=== PATIENT | male | born 1930 | race African-American/Black ===

== ENCOUNTER 2018-02-18 18:17 | Inpatient (IN) | payer MEDICARE, MEDICAID ==
[~2018-02-18] VITALS: Ht 170.2 cm; Wt 59.0 kg
[2018-02-18] MEDS ORDERED: AMLO5TAB88 PO (18:51)
[2018-02-18] MEDS ORDERED: MONT10TA24 PO (18:51)
[2018-02-18] MEDS ORDERED: TRAM150C25 PO (18:51)
[2018-02-18] MEDS ORDERED: FLUT1BLS3 IH (18:51)
[2018-02-18] MEDS ORDERED: SULF-288 PO (18:51)
[2018-02-18] MEDS ORDERED: IBUP-2029 PO (18:51)
[2018-02-18] MEDS ORDERED: CLONIDINE 0.2MG TABLET PO ONE (20:00)
[2018-02-18 20:40] LABS: BASOPHILS % 0.7 % (0.0-2.0); EOSINOPHILS % 0.3 % (0.0-5.0); HEMATOCRIT. 45.7 % (42.0-52.0); HEMOGLOBIN. 15.4 g/dL (14.0-18.0); LYMPHOCYTES % 34.9 % (20.0-50.0); MEAN CORPUSCULAR HEMOGLOBIN 31.4 pg (28.0-32.0); MEAN CORPUSCULAR VOLUME 93.1 fL (80.0-94.0); MEAN PLATELET VOLUME 9.2 fl (7.4-10.4); NEUTROPHILS % 53.1 % (40.0-76.0); PLATELET 196 x1000/uL (130-400); RED BLOOD CELL COUNT 4.91 mill/uL (4.7-6.1); RED CELL DISTRIBUTION WIDTH 13.6 % (11.6-14.6)
[2018-02-18 20:53] LABS: CHLORIDE 105 mEq/L (98-107)
[2018-02-18 20:57] LABS: ETHANOL BLOOD < 10 mg/dL
[2018-02-18 20:59] LABS: D-DIMER 4.06 mg/L FEU (<0.50); INR 1.2; PARTIAL THROMBOPLASTIN TIME 26.4 sec (23.4-31.0); PROTHROMBIN TIME 12.3 sec (9.1-11.1)
[2018-02-19] VITALS (10 sets, daily range): BP systolic 95–115; BP diastolic 49–72
[2018-02-19] MEDS ORDERED: DEXT 5%/0.45% NACL 1000ML 1,000 ML IV SCH (00:17)
[2018-02-19] MEDS ORDERED: ONDANSETRON HCL 4MG/2ML INJ IV PRN (00:30)
[2018-02-19] MEDS ORDERED: IPRATROPIUM/ALBUTEROL 0.5-3(2.5)MG/3ML NEB INH PRN (00:30)
[2018-02-19] MEDS ORDERED: ACETAMINOPHEN 325MG TABLET PO PRN (00:30)
[2018-02-19] MEDS ORDERED: TRAMADOL 50MG TABLET PO PRN (00:30)
[2018-02-19] MEDS ORDERED: GUAIFENESIN 200MG/10ML SUGAR FREE UDC PO PRN (00:30)
[2018-02-19] MEDS: DEXT 5%/0.45% NACL 1000ML 1,000 ML IV SCH (04:31)
[2018-02-19] MEDS ORDERED: CEFAZOLIN SODIUM 500MG/VIAL IM SCH (05:00)
[2018-02-19] MEDS: ENOXAPARIN 60MG/0.6ML SYR SUBCUT SCH (05:45)
[2018-02-19] MEDS ORDERED: FAMOTIDINE 20MG/2ML VIAL IV SCH (09:00)
[2018-02-19 09:35] LABS: BASOPHILS % 0.7 % (0.0-2.0); EOSINOPHILS % 0.6 % (0.0-5.0); HEMATOCRIT. 43.6 % (42.0-52.0); HEMOGLOBIN. 14.6 g/dL (14.0-18.0); LYMPHOCYTES % 37.2 % (20.0-50.0); MEAN CORPUSCULAR HEMOGLOBIN 31.1 pg (28.0-32.0); MEAN CORPUSCULAR VOLUME 92.9 fL (80.0-94.0); MEAN PLATELET VOLUME 9.2 fl (7.4-10.4); MONOCYTES % 8.9 % (2.0-8.0); NEUTROPHILS % 52.6 % (40.0-76.0); PLATELET 190 x1000/uL (130-400); RED BLOOD CELL COUNT 4.69 mill/uL (4.7-6.1); RED CELL DISTRIBUTION WIDTH 13.5 % (11.6-14.6)
[2018-02-19] MEDS: FAMOTIDINE 20MG/2ML VIAL IV SCH (09:36)
[2018-02-19] MEDS: IPRATROPIUM/ALBUTEROL 0.5-3(2.5)MG/3ML NEB INH SCH ×3 (12:30→21:31)
[2018-02-19] MEDS: BUDESONIDE 0.5MG/2ML NEB HHN SCH (12:34)
[2018-02-19] MEDS: METHYLPREDNISOLONE SOD SUCC 40 MG/ML VIAL IV SCH ×2 (13:54→21:31)
[2018-02-19] MEDS ORDERED: DIGOXIN 500MCG/2ML AMP IV NR (14:30)
[2018-02-19] MEDS ORDERED: LIDOCAINE HCL 2% JELLY 5ML TOP SCH (18:00)
[2018-02-19] MEDS: CEFAZOLIN 500 MG in DEXTROSE 5% WATER 50 ML IV SCH (21:31)
[2018-02-19] MEDS ORDERED: DIGOXIN 500MCG/2ML AMP IV SCH ×2 (22:45)
[2018-02-20] VITALS (12 sets, daily range): BP systolic 90–141; BP diastolic 43–95
[2018-02-20] MEDS: DEXT 5%/0.45% NACL 1000ML 1,000 ML IV SCH ×3 (00:29→18:50)
[2018-02-20] MEDS: IPRATROPIUM/ALBUTEROL 0.5-3(2.5)MG/3ML NEB INH SCH ×6 (01:39→20:26)
[2018-02-20] MEDS: DIPHENHYDRAMINE 50MG/ML VIAL IV PRN ×2 (01:58→07:47)
[2018-02-20] MEDS: METHYLPREDNISOLONE SOD SUCC 40 MG/ML VIAL IV SCH ×3 (05:43→22:41)
[2018-02-20] MEDS: ENOXAPARIN 60MG/0.6ML SYR SUBCUT SCH (05:43)
[2018-02-20 06:19] LABS: HEMATOCRIT. 40.3 % (42.0-52.0); HEMOGLOBIN. 13.8 g/dL (14.0-18.0); MEAN CORPUSCULAR HEMOGLOBIN 31.8 pg (28.0-32.0); MEAN CORPUSCULAR VOLUME 92.6 fL (80.0-94.0); MEAN PLATELET VOLUME 9.4 fl (7.4-10.4); PLATELET 196 x1000/uL (130-400); RED BLOOD CELL COUNT 4.35 mill/uL (4.7-6.1); RED CELL DISTRIBUTION WIDTH 13.3 % (11.6-14.6)
[2018-02-20 06:44] LABS: PHOSPHORUS 2.9 mg/dL (2.5-4.9)
[2018-02-20] MEDS: DILTIAZEM HCL 30MG TABLET PO SCH ×4 (08:15→23:04)
[2018-02-20 08:37] LABS: CLARITY URINE CLOUDY (CLEAR); COLOR URINE DARK YELLOW (YELLOW); KETONES URINE TRACE (NEGATIVE); LEUKOCYTE ESTERASE URINE TRACE (NEGATIVE); NITRITE URINE NEGATIVE (NEGATIVE); OCCULT BLOOD URINE 2+ (NEGATIVE); PH URINE 5.5 (4.5-8.0); PROTEIN URINE TRACE (NEGATIVE); SPECIFIC GRAVITY URINE 1.023 (1.005-1.030); UROBILINOGEN URINE 0.2 E.U./dL (0.2-1.0)
[2018-02-20] MEDS: CEFAZOLIN 500 MG in DEXTROSE 5% WATER 50 ML IV SCH ×2 (08:59→20:34)
[2018-02-20] MEDS: FAMOTIDINE 20MG/2ML VIAL IV SCH (08:59)
[2018-02-20] MEDS: BUDESONIDE 0.5MG/2ML NEB HHN SCH ×3 (09:00→18:10)
[2018-02-20] MEDS ORDERED: DIGOXIN 500MCG/2ML AMP IV NR ×3 (10:30→14:15)
[2018-02-20] MEDS ORDERED: MAGNESIUM 2 G PREMIX 50 ML IV ONE (12:15)
[2018-02-20] MEDS ORDERED: MAGNESIUM 1 G PREMIX 100 ML IV ONE (13:00)
[2018-02-20 13:20] LABS: PLATELET ESTIMATE NORMAL
[2018-02-20] MEDS ORDERED: MAGNESIUM SULFATE 2 GM in DEXTROSE 5% WATER 50 ML IV NR (13:30)
[2018-02-21] VITALS (12 sets, daily range): BP systolic 96–141; BP diastolic 43–100
[2018-02-21] MEDS: IPRATROPIUM/ALBUTEROL 0.5-3(2.5)MG/3ML NEB INH SCH ×3 (00:09→07:23)
[2018-02-21] MEDS: METHYLPREDNISOLONE SOD SUCC 40 MG/ML VIAL IV SCH ×3 (05:29→22:11)
[2018-02-21] MEDS: ENOXAPARIN 60MG/0.6ML SYR SUBCUT SCH (05:29)
[2018-02-21] MEDS: DILTIAZEM HCL 30MG TABLET PO SCH (05:30)
[2018-02-21 06:41] LABS: HEMATOCRIT. 37.9 % (42.0-52.0); HEMOGLOBIN. 12.9 g/dL (14.0-18.0); MEAN CORPUSCULAR HEMOGLOBIN 31.4 pg (28.0-32.0); PLATELET 183 x1000/uL (130-400); RED BLOOD CELL COUNT 4.12 mill/uL (4.7-6.1); RED CELL DISTRIBUTION WIDTH 13.6 % (11.6-14.6)
[2018-02-21 07:04] LABS: PHOSPHORUS 2.4 mg/dL (2.5-4.9)
[2018-02-21] MEDS: BUDESONIDE 0.5MG/2ML NEB HHN SCH (07:23)
[2018-02-21] MEDS: FAMOTIDINE 20MG/2ML VIAL IV SCH (08:23)
[2018-02-21] MEDS: CEFAZOLIN 500 MG in DEXTROSE 5% WATER 50 ML IV SCH ×2 (08:24→19:57)
[2018-02-21] MEDS ORDERED: DILTIAZEM HCL 30MG TABLET PO NR (09:30)
[2018-02-21] MEDS: DILTIAZEM HCL 60MG TABLET PO SCH ×3 (12:20→23:48)
[2018-02-21] MEDS: DEXT 5%/0.45% NACL 1000ML 1,000 ML IV SCH (12:22)
[2018-02-21] MEDS: LORAZEPAM 0.5MG TABLET PO PRN (13:24)
[2018-02-21 13:38] LABS: PLATELET ESTIMATE NORMAL
[2018-02-21] MEDS ORDERED: AMIODARONE HCL 150 MG in DEXT 5% WATER 100 ML IV NR (15:30)
[2018-02-21] MEDS ORDERED: DIGOXIN 500MCG/2ML AMP IV NR (15:47)
[2018-02-21] MEDS: IPRATROPIUM BROMIDE (0.02%) 0.5MG/2.5ML NEB HHN SCH ×2 (15:58→20:39)
[2018-02-21] MEDS: APIXABAN 2.5 MG TABLET PO SCH (17:02)
[2018-02-21] MEDS: AMIODARONE HCL 900 MG in DEXT 5% WATER 482 ML IV SCH (17:02)
[2018-02-21] MEDS: DIPHENHYDRAMINE 50MG/ML VIAL IV PRN (23:48)
[2018-02-22] VITALS (11 sets, daily range): BP systolic 103–149; BP diastolic 48–81
[2018-02-22] MEDS: IPRATROPIUM BROMIDE (0.02%) 0.5MG/2.5ML NEB HHN SCH ×7 (00:23→20:39)
[2018-02-22] MEDS: LORAZEPAM 0.5MG TABLET PO PRN (01:29)
[2018-02-22] MEDS: DILTIAZEM HCL 60MG TABLET PO SCH ×3 (06:05→17:45)
[2018-02-22] MEDS: APIXABAN 2.5 MG TABLET PO SCH ×2 (07:53→17:44)
[2018-02-22] MEDS: LORAZEPAM 2MG/ML CPJ IV PRN ×2 (07:53→16:27)
[2018-02-22 08:28] LABS: PHOSPHORUS 2.9 mg/dL (2.5-4.9)
[2018-02-22] MEDS: BUDESONIDE 0.5MG/2ML NEB HHN SCH (08:45)
[2018-02-22] MEDS: AMIODARONE HCL 900 MG in DEXT 5% WATER 482 ML IV SCH (09:00)
[2018-02-22] MEDS: QUETIAPINE FUMARATE 25MG TABLET PO SCH (21:01)
[2018-02-22] MEDS: FAMOTIDINE 20MG TABLET PO SCH (21:01)
[2018-02-23] VITALS (22 sets, daily range): BP systolic 103–134; BP diastolic 54–80
[2018-02-23] MEDS: IPRATROPIUM BROMIDE (0.02%) 0.5MG/2.5ML NEB HHN SCH ×7 (00:45→21:44)
[2018-02-23] MEDS: DILTIAZEM HCL 60MG TABLET PO SCH ×4 (00:59→18:50)
[2018-02-23] MEDS: DIPHENHYDRAMINE 50MG/ML VIAL IV PRN (01:08)
[2018-02-23 06:02] LABS: CHLORIDE 105 mEq/L (98-107)
[2018-02-23] MEDS: BUDESONIDE 0.5MG/2ML NEB HHN SCH (08:43)
[2018-02-23] MEDS: QUETIAPINE FUMARATE 25MG TABLET PO SCH ×2 (09:02→21:40)
[2018-02-23] MEDS: APIXABAN 2.5 MG TABLET PO SCH ×2 (09:02→18:50)
[2018-02-23] MEDS: AMIODARONE HCL 200 MG TABLET PO SCH (18:50)
[2018-02-23] MEDS: DEXT 5%/0.45% NACL 1000ML 1,000 ML IV SCH ×2 (19:00→20:13)
[2018-02-23] MEDS: FAMOTIDINE 20MG TABLET PO SCH (21:40)
[2018-02-24] VITALS (13 sets, daily range): BP systolic 115–145; BP diastolic 56–90
[2018-02-24] MEDS: IPRATROPIUM BROMIDE (0.02%) 0.5MG/2.5ML NEB HHN SCH ×6 (01:24→21:33)
[2018-02-24] MEDS: DILTIAZEM HCL 60MG TABLET PO SCH ×4 (02:42→17:57)
[2018-02-24] MEDS: BUDESONIDE 0.5MG/2ML NEB HHN SCH (08:52)
[2018-02-24] MEDS: AMIODARONE HCL 200 MG TABLET PO SCH ×2 (10:34→17:57)
[2018-02-24] MEDS: QUETIAPINE FUMARATE 25MG TABLET PO SCH (10:34)
[2018-02-24] MEDS: APIXABAN 2.5 MG TABLET PO SCH ×2 (10:34→17:57)
[2018-02-24] MEDS: FAMOTIDINE 20MG TABLET PO SCH (21:41)
[2018-02-25] VITALS (13 sets, daily range): BP systolic 122–151; BP diastolic 61–78
[2018-02-25] MEDS: DILTIAZEM HCL 60MG TABLET PO SCH ×4 (00:35→17:38)
[2018-02-25] MEDS: IPRATROPIUM BROMIDE (0.02%) 0.5MG/2.5ML NEB HHN SCH ×5 (01:49→17:51)
[2018-02-25] MEDS: BUDESONIDE 0.5MG/2ML NEB HHN SCH (08:37)
[2018-02-25] MEDS: AMIODARONE HCL 200 MG TABLET PO SCH ×2 (09:29→17:38)
[2018-02-25] MEDS: APIXABAN 2.5 MG TABLET PO SCH ×2 (09:29→17:38)
[2018-02-25] MEDS: FAMOTIDINE 20MG TABLET PO SCH (21:20)
[2018-02-26] VITALS (11 sets, daily range): BP systolic 128–158; BP diastolic 54–76
[2018-02-26] MEDS: DILTIAZEM HCL 60MG TABLET PO SCH ×4 (01:02→18:35)
[2018-02-26] MEDS: APIXABAN 2.5 MG TABLET PO SCH ×2 (09:27→18:35)
[2018-02-26] MEDS ORDERED: AMLODIPINE 2.5MG TABLET PO SCH (10:45)
[2018-02-26] MEDS ORDERED: AMIODARONE HCL 200 MG TABLET PO SCH (17:00)
== END 2018-02-26 20:45 | disposition home health service (06) | DRG 682 ==
LOC: ER 20:54 → EDBEDREQSVC 02-19 00:43 → 5EST 02-19 00:44 → ENRESERV 02-19 02:20 → 5EST 02-19 04:49
PROVIDERS: ADMIT Internal Medicine; ATTEND Internal Medicine
DX: N17.9 Acute kidney failure, unspecified (principal); G92 Toxic encephalopathy; I26.99 Other pulmonary embolism without acute cor pulmonale; J44.1 Chronic obstructive pulmonary disease with (acute) exacerbation; I48.4 Atypical atrial flutter; F23 Brief psychotic disorder; I45.3 Trifascicular block; I47.1 Supraventricular tachycardia; I48.0 Paroxysmal atrial fibrillation; I10 Essential (primary) hypertension; E78.5 Hyperlipidemia, unspecified; E83.42 Hypomagnesemia; E74.39 Other disorders of intestinal carbohydrate absorption; E78.00 Pure hypercholesterolemia, unspecified; I44.0 Atrioventricular block, first degree; I45.10 Unspecified right bundle-branch block; N18.9 Chronic kidney disease, unspecified; N40.1 Benign prostatic hyperplasia with lower urinary tract symptoms; R33.8 Other retention of urine; M19.90 Unspecified osteoarthritis, unspecified site; I95.9 Hypotension, unspecified; R91.8 Other nonspecific abnormal finding of lung field; F41.9 Anxiety disorder, unspecified; Z87.891 Personal history of nicotine dependence; Z95.810 Presence of automatic (implantable) cardiac defibrillator; Z79.899 Other long term (current) drug therapy; Z82.49 Family history of ischemic heart disease and other diseases of the circulatory system; Z91.19 Patient's noncompliance with other medical treatment and regimen
CPT/HCPCS: 36415; 71045; 71250; 76770; 78582; 80048; 82570; 83735; 83880; 84100; 84300; 84484; 84540; 85379; 86850; 86900; 93005; 93306; 93970; 94640; 97116; 97162; 97166; 97530; 99285; A9558; G0482; J0282; J0690; J1160; J1200; J1650; J2060; J2920; J3475; J3490; J7050; J7060; J7620; J7626

== ENCOUNTER → 2018-07-10 | Day surgery (SDC) | payer MEDICARE, MEDICAID ==
[~2018-07-10] MED LIST: FLUT1BLS3 IH; IBUP-2029 PO; LIDOCAINE HCL 1% 20ML VIAL (Pyxis) INJ ONE; MONT10TA24 PO; PROPOFOL 200MG/20ML VIAL IV ONE; SULF-288 PO; TRAM150C25 PO
== END | disposition home or self-care (01) ==
LOC: CARD 07:41
PROVIDERS: ATTEND Internal Medicine Clinical Cardiac Electrophysiology
DX: I48.1 Persistent atrial fibrillation (principal); Z53.8 Procedure and treatment not carried out for other reasons; J44.9 Chronic obstructive pulmonary disease, unspecified; F41.9 Anxiety disorder, unspecified; N40.0 Benign prostatic hyperplasia without lower urinary tract symptoms; M19.90 Unspecified osteoarthritis, unspecified site; Z95.0 Presence of cardiac pacemaker; Z79.1 Long term (current) use of non-steroidal anti-inflammatories (NSAID); Z79.899 Other long term (current) drug therapy; Z87.891 Personal history of nicotine dependence; Z82.49 Family history of ischemic heart disease and other diseases of the circulatory system
CPT/HCPCS: 93005; J2704; J3490

== ENCOUNTER 2018-08-29 13:38 | Emergency (ER) | payer MEDICARE, MEDICAID ==
[~2018-08-29] VITALS: Ht 172.7 cm; Wt 70.0 kg
[~2018-08-29 13:38] MED LIST changes: -LIDOCAINE HCL 1% 20ML VIAL (Pyxis) INJ ONE; -PROPOFOL 200MG/20ML VIAL IV ONE
[2018-08-29] MEDS ORDERED: ACETAMINOPHEN 325MG TABLET PO ONE (15:00)
[2018-08-29 17:15] VITALS: BP 128/79
== END 2018-08-29 17:16 | disposition home or self-care (01) ==
LOC: ER 13:38
DX: S50.01XA Contusion of right elbow, initial encounter (principal); S00.03XA Contusion of scalp, initial encounter; I11.9 Hypertensive heart disease without heart failure; E78.00 Pure hypercholesterolemia, unspecified; Z95.0 Presence of cardiac pacemaker; Z87.891 Personal history of nicotine dependence; Z79.899 Other long term (current) drug therapy; V89.2XXA Person injured in unspecified motor-vehicle accident, traffic, initial encounter; Y93.01 Activity, walking, marching and hiking; Y92.89 Other specified places as the place of occurrence of the external cause; Y99.8 Other external cause status
CPT/HCPCS: 99284